=== PATIENT | male | born 1940 | race Caucasian/White ===

== ENCOUNTER 2021-09-26 08:30 | Inpatient (IN) | payer OTHER ==
[~2021-09-26] VITALS: Ht 188 cm; Wt 99.3 kg
[2021-09-26] VITALS (13 sets, daily range): BP systolic 129–164
[2021-09-26 09:14] LABS: BASOPHILS % (AUTO) 0.1 % (0.0-2.0); HEMATOCRIT 38.2 % (36-54); HEMOGLOBIN 12.7 g/dL (14.0-18.0); LYMPHOCYTES # (AUTO) 0.9 K/uL (1.0-5.5); LYMPHOCYTES % (AUTO) 4.4 % (20.5-51.5); MEAN CORPUSCULAR HEMOGLOBIN 30 pg (27-31); MEAN CORPUSCULAR HGB CONC 33 % (32-36); MEAN CORPUSCULAR VOLUME 89 fL (79.0-98.0); MONOCYTES # (AUTO) 1.4 K/uL (0.0-1.0); MONOCYTES % (AUTO) 7.3 % (1.7-9.3); NEUTROPHILS % (AUTO) 88.2 % (40.0-70.0); PLATELET COUNT (AUTO) 290 K/uL (130-430); RED CELL DISTRIBUTION WIDTH 15.2 % (9.0-15.0); WHITE BLOOD COUNT (AUTO) 19.2 K/uL (4.8-10.8)
[2021-09-26] MEDS ORDERED: SODIUM BICARBONATE 8.4% JECT 50 MEQ/50 ML SYRINGE IVP ONE (09:15)
[2021-09-26 09:17] LABS: ANION GAP 9 (5-15); CALCIUM 8.4 mg/dL (8.4-11.0); CHLORIDE 103 mmol/L (98-107); CREATININE 1.99 mg/dL (0.55-1.30); GLUCOSE 210 mg/dL (70-99); SODIUM SERUM 141 mmol/L (136-145); UREA NITROGEN, BLOOD 40 mg/dL (8-21)
[2021-09-26 09:21] LABS: PROTHROMBIN TIME 10.8 SECS (9.5-12.5)
[2021-09-26 09:26] LABS: ALANINE AMINOTRANSFERASE 14 U/L (12-78); ALBUMIN 2.8 g/dL (3.4-4.8); ASPARTATE AMINOTRANSFERASE 18 U/L (10-37); TOTAL BILIRUBIN 0.8 mg/dL (0.0-1.0)
[2021-09-26 09:28] LABS: POTASSIUM 2.8 mmol/L (3.5-5.1)
[2021-09-26] MEDS ORDERED: PIPERACILLIN/TAZO 3.375 GM in NS 50 ML IV ONE (10:15)
[2021-09-26] MEDS ORDERED: NACL 0.9% 2,000 ML IV ONE (10:30)
[2021-09-26] MEDS ORDERED: AZITHROMYCIN 500 MG in NS 250 ML IV ONE (10:30)
[2021-09-26] MEDS ORDERED: KCL 20 mEq in 100 mL (PREMIX) 100 ML IV ONE (10:45)
[2021-09-26 10:53] LABS: BILIRUBIN,URINE NEGATIVE (NEGATIVE); BLOOD, URINE 2+ (NEGATIVE); CLARITY/URINE CLEAR (CLEAR); COLOR,URINE YELLOW (YELLOW); GLUCOSE,URINE NEGATIVE (NEGATIVE); KETONES,URINE NEGATIVE (NEGATIVE); LEUKOCYTE ESTERASE ,URINE NEGATIVE (NEGATIVE); NITRITE, URINE NEGATIVE (NEGATIVE); PROTEIN URINE 1+ (NEGATIVE)
[2021-09-26] MEDS ORDERED: PIPERACILLIN/TAZOBACTAM 3.375 GM/VIAL (ZOSYN) IV ONE (10:53)
[2021-09-26 11:00] LABS: BACTERIA,URINE FEW /HPF (None Seen); WBC,URINE 0-3 /HPF (0-3)
[2021-09-26 11:01] LABS: FINE GRANULAR CASTS,URINE 0-10 /LPF (None Seen); MUCUS,URINE None Seen /LPF (None Seen)
[2021-09-26] MEDS ORDERED: AZITHROMYCIN 500 MG/VIAL (ZITHROMAX) IV ONE (12:13)
[2021-09-26] MEDS ORDERED: *LOVENOX 1MG/KG Q12H/PHARMACY XX ONE (13:00)
[2021-09-26] MEDS ORDERED: NALOXONE HCL 0.4 MG/ML AMP (NARCAN) IVP PRN (13:15)
[2021-09-26] MEDS ORDERED: ONDANSETRON HCL 4 MG/2 ML VIAL IVP PRN (13:15)
[2021-09-26] MEDS ORDERED: cefTRIAXone 1 GM IVPB PREMIX 50 ML IV SCH (14:00)
[2021-09-26] MEDS: AZITHROMYCIN 500 MG in NS 250 ML IV SCH (15:00)
[2021-09-26] MEDS: IPRATROPIUM BROM 0.5 MG/2.5 ML VIAL.NEB (ATROVENT) INH SCH ×3 (15:05→23:23)
[2021-09-26] MEDS: ALBUTEROL SULFATE 0.083% 2.5 MG/3 ML VIAL.NEB INH SCH ×3 (15:21→23:22)
[2021-09-26 16:55] LABS: ANION GAP 8 (5-15); CALCIUM 8.2 mg/dL (8.4-11.0); CHLORIDE 106 mmol/L (98-107); CREATININE 1.72 mg/dL (0.55-1.30); GLUCOSE 140 mg/dL (70-99); POTASSIUM 3.1 mmol/L (3.5-5.1); SODIUM SERUM 148 mmol/L (136-145); UREA NITROGEN, BLOOD 37 mg/dL (8-21)
[2021-09-26] MEDS: PIPERACILLIN/TAZO 2.25G/DEX-IS 50 ML IV SCH (23:07)
[2021-09-27] VITALS (17 sets, daily range): BP systolic 107–159
[2021-09-27] MEDS: D5/0.45 NS 1,000 ML IV SCH ×4 (00:35→20:00)
[2021-09-27] MEDS: LORazepam 2 MG/ML VIAL IVP PRN (01:59)
[2021-09-27] MEDS: IPRATROPIUM BROM 0.5 MG/2.5 ML VIAL.NEB (ATROVENT) INH SCH ×6 (02:26→22:20)
[2021-09-27] MEDS: ALBUTEROL SULFATE 0.083% 2.5 MG/3 ML VIAL.NEB INH SCH ×6 (02:26→22:20)
[2021-09-27] MEDS: PIPERACILLIN/TAZO 2.25G/DEX-IS 50 ML IV SCH ×3 (06:19→23:26)
[2021-09-27 07:11] LABS: BASOPHILS % (AUTO) 0.1 % (0.0-2.0); HEMATOCRIT 34.8 % (36-54); HEMOGLOBIN 11.5 g/dL (14.0-18.0); MEAN CORPUSCULAR HEMOGLOBIN 29 pg (27-31); MEAN CORPUSCULAR HGB CONC 33 % (32-36); MEAN CORPUSCULAR VOLUME 89 fL (79.0-98.0); MONOCYTES # (AUTO) 1.4 K/uL (0.0-1.0); MONOCYTES % (AUTO) 7.2 % (1.7-9.3); NEUTROPHILS # (AUTO) 17.3 K/uL (1.8-7.7); NEUTROPHILS % (AUTO) 87.7 % (40.0-70.0); PLATELET COUNT (AUTO) 262 K/uL (130-430); RED BLOOD CELL COUNT(AUTO) 3.91 MIL/uL (4.2-6.2); RED CELL DISTRIBUTION WIDTH 14.9 % (9.0-15.0); WHITE BLOOD COUNT (AUTO) 19.8 K/uL (4.8-10.8)
[2021-09-27 07:28] LABS: ANION GAP 7 (5-15); CALCIUM 8.3 mg/dL (8.4-11.0); CHLORIDE 109 mmol/L (98-107); CREATININE 1.58 mg/dL (0.55-1.30); GLUCOSE 152 mg/dL (70-99); PHOSPHORUS 4.3 mg/dL (2.7-4.5); SODIUM SERUM 150 mmol/L (136-145); UREA NITROGEN, BLOOD 34 mg/dL (8-21)
[2021-09-27 08:41] LABS: POTASSIUM 2.7 mmol/L (3.5-5.1)
[2021-09-27 09:07] LABS: C-REACTIVE PROTEIN QUANT 17.8 mg/dL (0-0.5)
[2021-09-27] MEDS ORDERED: KCL 20 mEq in 100 mL (PREMIX) 200 ML IV ONE (09:45)
[2021-09-27 10:14] LABS: ERYTHROCYTE SEDIMENTATION RATE 72 MM/HR (0-15)
[2021-09-27] MEDS ORDERED: HYDROCHLOROTHIAZIDE 12.5 MG CAPSULE (HCTZ) PO ONE (14:15)
[2021-09-27] MEDS: AZITHROMYCIN 500 MG in NS 250 ML IV SCH (15:00)
[2021-09-27] MEDS ORDERED: HEPARIN SODIUM,PORCINE 5,000 UNITS/ML VIAL SUBCUT ONE ×2 (16:15→19:00)
[2021-09-28] VITALS (21 sets, daily range): BP systolic 105–172
[2021-09-28] MEDS: LORazepam 2 MG/ML VIAL IVP PRN (00:16)
[2021-09-28] MEDS: MORPHINE 2 MG/ML INJ. SYRINGE IVP PRN (01:52)
[2021-09-28] MEDS: IPRATROPIUM BROM 0.5 MG/2.5 ML VIAL.NEB (ATROVENT) INH SCH ×6 (03:36→23:15)
[2021-09-28] MEDS: ALBUTEROL SULFATE 0.083% 2.5 MG/3 ML VIAL.NEB INH SCH ×6 (03:37→23:15)
[2021-09-28] MEDS: PIPERACILLIN/TAZO 2.25G/DEX-IS 50 ML IV SCH ×3 (06:08→21:17)
[2021-09-28 06:42] LABS: BASOPHILS # (AUTO) 0.1 K/uL (0.0-0.2); BASOPHILS % (AUTO) 0.2 % (0.0-2.0); HEMATOCRIT 35.8 % (36-54); HEMOGLOBIN 11.8 g/dL (14.0-18.0); LYMPHOCYTES # (AUTO) 0.8 K/uL (1.0-5.5); LYMPHOCYTES % (AUTO) 3.2 % (20.5-51.5); MEAN CORPUSCULAR HEMOGLOBIN 29 pg (27-31); MEAN CORPUSCULAR HGB CONC 33 % (32-36); MEAN CORPUSCULAR VOLUME 90 fL (79.0-98.0); MONOCYTES # (AUTO) 1.6 K/uL (0.0-1.0); MONOCYTES % (AUTO) 6.4 % (1.7-9.3); NEUTROPHILS # (AUTO) 22.4 K/uL (1.8-7.7); NEUTROPHILS % (AUTO) 90.2 % (40.0-70.0); PLATELET COUNT (AUTO) 296 K/uL (130-430); RED CELL DISTRIBUTION WIDTH 15.2 % (9.0-15.0); WHITE BLOOD COUNT (AUTO) 24.8 K/uL (4.8-10.8)
[2021-09-28 07:15] LABS: ALANINE AMINOTRANSFERASE 11 U/L (12-78); ALBUMIN 2.1 g/dL (3.4-4.8); ASPARTATE AMINOTRANSFERASE 15 U/L (10-37); CALCIUM 8.3 mg/dL (8.4-11.0); CREATININE 1.28 mg/dL (0.55-1.30); GLUCOSE 95 mg/dL (70-99); PHOSPHORUS 1.8 mg/dL (2.7-4.5); TOTAL BILIRUBIN 0.5 mg/dL (0.0-1.0); UREA NITROGEN, BLOOD 22 mg/dL (8-21)
[2021-09-28 07:27] LABS: ANION GAP 8 (5-15); CHLORIDE 109 mmol/L (98-107); SODIUM SERUM 151 mmol/L (136-145)
[2021-09-28 07:42] LABS: POTASSIUM 2.8 mmol/L (3.5-5.1)
[2021-09-28 08:17] LABS: C-REACTIVE PROTEIN QUANT 21.7 mg/dL (0-0.5)
[2021-09-28] MEDS ORDERED: K PHOS 30 MM in NS 250 ML IV ONE (08:45)
[2021-09-28] MEDS: D5/0.45 NS 1,000 ML IV SCH ×2 (09:03→15:15)
[2021-09-28] MEDS: HYDROCHLOROTHIAZIDE 12.5 MG CAPSULE (HCTZ) PO SCH (09:04)
[2021-09-28] MEDS: HEPARIN SODIUM,PORCINE 5,000 UNITS/ML VIAL SUBCUT SCH ×2 (09:07→21:16)
[2021-09-28 09:19] LABS: ERYTHROCYTE SEDIMENTATION RATE 71 MM/HR (0-15)
[2021-09-28] MEDS: MORPHINE 4 MG INJ. 4 MG/ML VIAL IVP PRN ×2 (12:10→21:20)
[2021-09-28] MEDS: AZITHROMYCIN 500 MG in NS 250 ML IV SCH (16:04)
[2021-09-28] MEDS: VANCOMYCIN HCL 1,500 MG in NS 250 ML IV SCH (17:08)
[2021-09-29] VITALS (22 sets, daily range): BP systolic 92–162
[2021-09-29] MEDS: IPRATROPIUM BROM 0.5 MG/2.5 ML VIAL.NEB (ATROVENT) INH SCH ×6 (03:45→23:11)
[2021-09-29] MEDS: ALBUTEROL SULFATE 0.083% 2.5 MG/3 ML VIAL.NEB INH SCH ×6 (03:45→23:11)
[2021-09-29 06:28] LABS: ANION GAP 7 (5-15); CHLORIDE 111 mmol/L (98-107); CREATININE 1.26 mg/dL (0.55-1.30); GLUCOSE 141 mg/dL (70-99); SODIUM SERUM 150 mmol/L (136-145); UREA NITROGEN, BLOOD 18 mg/dL (8-21)
[2021-09-29] MEDS: PIPERACILLIN/TAZO 2.25G/DEX-IS 50 ML IV SCH ×3 (06:39→21:20)
[2021-09-29] MEDS: D5/0.45 NS 1,000 ML IV SCH ×3 (06:39→21:19)
[2021-09-29] MEDS: MORPHINE 4 MG INJ. 4 MG/ML VIAL IVP PRN ×2 (06:42→14:25)
[2021-09-29 07:52] LABS: HEMATOCRIT 37.1 % (36-54); MEAN CORPUSCULAR HEMOGLOBIN 29 pg (27-31); MEAN CORPUSCULAR HGB CONC 32 % (32-36); MEAN CORPUSCULAR VOLUME 90 fL (79.0-98.0); PLATELET COUNT (AUTO) 324 K/uL (130-430); RED BLOOD CELL COUNT(AUTO) 4.14 MIL/uL (4.2-6.2); RED CELL DISTRIBUTION WIDTH 15.7 % (9.0-15.0)
[2021-09-29] MEDS: HYDROCHLOROTHIAZIDE 12.5 MG CAPSULE (HCTZ) PO SCH (09:00)
[2021-09-29] MEDS: HEPARIN SODIUM,PORCINE 5,000 UNITS/ML VIAL SUBCUT SCH ×2 (09:10→21:21)
[2021-09-29] MEDS: KCL 20 mEq in 100 mL (PREMIX) 100 ML IV SCH ×2 (09:15→11:35)
[2021-09-29 09:18] LABS: WHITE BLOOD COUNT (AUTO) 34.5 K/uL (4.8-10.8)
[2021-09-29] MEDS: LORazepam 2 MG/ML VIAL IVP PRN ×3 (11:37→20:56)
[2021-09-29] MEDS: AZITHROMYCIN 500 MG in NS 250 ML IV SCH (14:23)
[2021-09-29 15:14] LABS: BAND % (MANUAL) 12 % (0-6); EOSINOPHILS % (MANUAL) 0 % (0-7); LYMPHOCYTES % (MANUAL) 2 % (20-46); MONOCYTES % (MANUAL) 3 % (0-11)
[2021-09-29 15:15] LABS: BASOPHILS % (MANUAL) 0 % (0-2)
[2021-09-29] MEDS: VANCOMYCIN HCL 1,500 MG in NS 250 ML IV SCH (18:07)
[2021-09-30] VITALS (22 sets, daily range): BP systolic 95–174
[2021-09-30] MEDS: IPRATROPIUM BROM 0.5 MG/2.5 ML VIAL.NEB (ATROVENT) INH SCH ×6 (04:14→23:00)
[2021-09-30] MEDS: ALBUTEROL SULFATE 0.083% 2.5 MG/3 ML VIAL.NEB INH SCH ×6 (04:14→23:00)
[2021-09-30] MEDS: LORazepam 2 MG/ML VIAL IVP PRN ×3 (04:35→22:37)
[2021-09-30] MEDS: PIPERACILLIN/TAZO 2.25G/DEX-IS 50 ML IV SCH ×3 (06:42→22:15)
[2021-09-30 07:06] LABS: ANION GAP 4 (5-15); CALCIUM 8.2 mg/dL (8.4-11.0); CHLORIDE 114 mmol/L (98-107); GLUCOSE 143 mg/dL (70-99); POTASSIUM 3.7 mmol/L (3.5-5.1); SODIUM SERUM 152 mmol/L (136-145); UREA NITROGEN, BLOOD 17 mg/dL (8-21)
[2021-09-30 07:07] LABS: BASOPHILS % (AUTO) 0.1 % (0.0-2.0); EOSINOPHILS # (AUTO) 0.1 K/uL (0.0-0.4); EOSINOPHILS % (AUTO) 0.3 % (0.0-4.0); HEMATOCRIT 34.5 % (36-54); HEMOGLOBIN 11.3 g/dL (14.0-18.0); LYMPHOCYTES # (AUTO) 0.8 K/uL (1.0-5.5); LYMPHOCYTES % (AUTO) 2.4 % (20.5-51.5); MEAN CORPUSCULAR HEMOGLOBIN 29 pg (27-31); MEAN CORPUSCULAR HGB CONC 33 % (32-36); MEAN CORPUSCULAR VOLUME 90 fL (79.0-98.0); MONOCYTES # (AUTO) 1.5 K/uL (0.0-1.0); MONOCYTES % (AUTO) 4.5 % (1.7-9.3); NEUTROPHILS % (AUTO) 92.7 % (40.0-70.0); PLATELET COUNT (AUTO) 318 K/uL (130-430); RED BLOOD CELL COUNT(AUTO) 3.85 MIL/uL (4.2-6.2); RED CELL DISTRIBUTION WIDTH 15.6 % (9.0-15.0)
[2021-09-30] MEDS: HYDROCHLOROTHIAZIDE 12.5 MG CAPSULE (HCTZ) PO SCH (07:52)
[2021-09-30] MEDS: D5/0.45 NS 1,000 ML IV SCH ×3 (07:52→23:17)
[2021-09-30] MEDS: MORPHINE 4 MG INJ. 4 MG/ML VIAL IVP PRN (07:54)
[2021-09-30] MEDS: HEPARIN SODIUM,PORCINE 5,000 UNITS/ML VIAL SUBCUT SCH ×2 (08:29→22:36)
[2021-09-30 08:33] LABS: WHITE BLOOD COUNT (AUTO) 32.4 K/uL (4.8-10.8)
[2021-09-30] MEDS: AZITHROMYCIN 500 MG in NS 250 ML IV SCH (15:02)
[2021-09-30] MEDS: VANCOMYCIN HCL 1,500 MG in NS 250 ML IV SCH (17:25)
[2021-10-01] VITALS (25 sets, daily range): BP systolic 80–158
[2021-10-01] MEDS: MORPHINE 2 MG/ML INJ. SYRINGE IVP PRN (02:37)
[2021-10-01] MEDS: IPRATROPIUM BROM 0.5 MG/2.5 ML VIAL.NEB (ATROVENT) INH SCH ×6 (03:15→23:15)
[2021-10-01] MEDS: ALBUTEROL SULFATE 0.083% 2.5 MG/3 ML VIAL.NEB INH SCH ×6 (03:15→23:15)
[2021-10-01] MEDS: PIPERACILLIN/TAZO 2.25G/DEX-IS 50 ML IV SCH ×3 (06:02→21:48)
[2021-10-01 06:59] LABS: ANION GAP 4 (5-15); CALCIUM 8.1 mg/dL (8.4-11.0); CHLORIDE 113 mmol/L (98-107); CREATININE 1.39 mg/dL (0.55-1.30); GLUCOSE 131 mg/dL (70-99); POTASSIUM 3.3 mmol/L (3.5-5.1); SODIUM SERUM 150 mmol/L (136-145); UREA NITROGEN, BLOOD 19 mg/dL (8-21)
[2021-10-01 07:02] LABS: BASOPHILS # (AUTO) 0.1 K/uL (0.0-0.2); BASOPHILS % (AUTO) 0.3 % (0.0-2.0); EOSINOPHILS # (AUTO) 0.1 K/uL (0.0-0.4); EOSINOPHILS % (AUTO) 0.5 % (0.0-4.0); HEMATOCRIT 35.4 % (36-54); HEMOGLOBIN 11.7 g/dL (14.0-18.0); LYMPHOCYTES # (AUTO) 0.8 K/uL (1.0-5.5); LYMPHOCYTES % (AUTO) 3.2 % (20.5-51.5); MEAN CORPUSCULAR HEMOGLOBIN 29 pg (27-31); MEAN CORPUSCULAR HGB CONC 33 % (32-36); MEAN CORPUSCULAR VOLUME 89 fL (79.0-98.0); MONOCYTES # (AUTO) 1.2 K/uL (0.0-1.0); MONOCYTES % (AUTO) 4.9 % (1.7-9.3); NEUTROPHILS # (AUTO) 22.7 K/uL (1.8-7.7); PLATELET COUNT (AUTO) 295 K/uL (130-430); RED BLOOD CELL COUNT(AUTO) 3.97 MIL/uL (4.2-6.2); RED CELL DISTRIBUTION WIDTH 15.6 % (9.0-15.0); WHITE BLOOD COUNT (AUTO) 24.9 K/uL (4.8-10.8)
[2021-10-01] MEDS: HYDROCHLOROTHIAZIDE 12.5 MG CAPSULE (HCTZ) PO SCH (09:00)
[2021-10-01] MEDS ORDERED: hydrALAZINE HCL 20 MG/ML VIAL IVP PRN (09:00)
[2021-10-01 09:02] LABS: NEUTROPHILS % (AUTO) 91.1 % (40.0-70.0)
[2021-10-01] MEDS: HEPARIN SODIUM,PORCINE 5,000 UNITS/ML VIAL SUBCUT SCH ×2 (09:02→20:44)
[2021-10-01] MEDS: POTASSIUM CHLORIDE 40 MEQ, LIDOCAINE JECT 2% PF 100 MG 50 MG in NS 250 ML IV PRN (09:55)
[2021-10-01] MEDS ORDERED: *TPN PER PHARMACY XX PRN (15:00)
[2021-10-01] MEDS: VANCOMYCIN HCL 1,500 MG in NS 250 ML IV SCH (17:17)
[2021-10-01 17:33] LABS: PROTHROMBIN TIME 10.9 SECS (9.5-12.5)
[2021-10-01] MEDS: D5W 1,000 ML IV SCH ×2 (19:15→23:05)
[2021-10-01] MEDS: LORazepam 2 MG/ML VIAL IVP PRN (22:18)
[2021-10-02] VITALS (23 sets, daily range): BP systolic 85–178
[2021-10-02] MEDS: ALBUTEROL SULFATE 0.083% 2.5 MG/3 ML VIAL.NEB INH SCH ×6 (02:32→22:20)
[2021-10-02] MEDS: IPRATROPIUM BROM 0.5 MG/2.5 ML VIAL.NEB (ATROVENT) INH SCH ×6 (02:32→22:21)
[2021-10-02] MEDS: MORPHINE 2 MG/ML INJ. SYRINGE IVP PRN (04:31)
[2021-10-02] MEDS: PIPERACILLIN/TAZO 2.25G/DEX-IS 50 ML IV SCH ×3 (05:54→21:51)
[2021-10-02 06:35] LABS: ALANINE AMINOTRANSFERASE 9 U/L (12-78); ALBUMIN 1.4 g/dL (3.4-4.8); ANION GAP 5 (5-15); ASPARTATE AMINOTRANSFERASE 20 U/L (10-37); BILIRUBIN,DIRECT 0.5 mg/dL (0.0-0.3); CALCIUM 8.2 mg/dL (8.4-11.0); CHLORIDE 112 mmol/L (98-107); CREATININE 1.42 mg/dL (0.55-1.30); GLUCOSE 134 mg/dL (70-99); PHOSPHORUS 1.7 mg/dL (2.7-4.5); POTASSIUM 3.1 mmol/L (3.5-5.1); SODIUM SERUM 150 mmol/L (136-145); TOTAL BILIRUBIN 0.7 mg/dL (0.0-1.0); UREA NITROGEN, BLOOD 19 mg/dL (8-21)
[2021-10-02 08:05] LABS: BASOPHILS % (AUTO) 0.2 % (0.0-2.0); EOSINOPHILS # (AUTO) 0.1 K/uL (0.0-0.4); EOSINOPHILS % (AUTO) 0.3 % (0.0-4.0); HEMOGLOBIN 11.9 g/dL (14.0-18.0); LYMPHOCYTES # (AUTO) 1.2 K/uL (1.0-5.5); LYMPHOCYTES % (AUTO) 6.1 % (20.5-51.5); MEAN CORPUSCULAR HEMOGLOBIN 29 pg (27-31); MEAN CORPUSCULAR HGB CONC 33 % (32-36); MEAN CORPUSCULAR VOLUME 88 fL (79.0-98.0); MONOCYTES # (AUTO) 1.4 K/uL (0.0-1.0); MONOCYTES % (AUTO) 7.6 % (1.7-9.3); NEUTROPHILS # (AUTO) 16.3 K/uL (1.8-7.7); PLATELET COUNT (AUTO) 301 K/uL (130-430); RED BLOOD CELL COUNT(AUTO) 4.08 MIL/uL (4.2-6.2); RED CELL DISTRIBUTION WIDTH 15.9 % (9.0-15.0)
[2021-10-02 08:44] LABS: NEUTROPHILS % (AUTO) 85.8 % (40.0-70.0)
[2021-10-02] MEDS: HYDROCHLOROTHIAZIDE 12.5 MG CAPSULE (HCTZ) PO SCH (09:00)
[2021-10-02] MEDS: HEPARIN SODIUM,PORCINE 5,000 UNITS/ML VIAL SUBCUT SCH ×2 (09:11→21:53)
[2021-10-02] MEDS: POTASSIUM CHLORIDE 40 MEQ, LIDOCAINE JECT 2% PF 100 MG 50 MG in NS 250 ML IV PRN (10:39)
[2021-10-02 10:42] LABS: TRIGLYCERIDES 90 mg/dL (30-150)
[2021-10-02] MEDS ORDERED: hydrALAZINE HCL 20 MG/ML VIAL IVP PRN (11:00)
[2021-10-02] MEDS: D5W 1,000 ML IV SCH (12:25)
[2021-10-02] MEDS: VANCOMYCIN HCL 1,500 MG in NS 250 ML IV SCH (17:49)
[2021-10-02] MEDS ORDERED: MVI IV SCH ×7 (21:00)
[2021-10-02] MEDS ORDERED: MAGNESIUM SULFATE IV SCH ×7 (21:00)
[2021-10-02] MEDS ORDERED: K PHOS IV SCH ×7 (21:00)
[2021-10-02] MEDS ORDERED: TPN CENTRAL IV SCH ×7 (21:00)
[2021-10-02] MEDS ORDERED: [UNRECOGNIZED DRUG - OTHER] IV SCH ×7 (21:00)
[2021-10-03] VITALS (21 sets, daily range): BP systolic 0–163
[2021-10-03] MEDS: ALBUTEROL SULFATE 0.083% 2.5 MG/3 ML VIAL.NEB INH SCH ×2 (03:07→07:15)
[2021-10-03] MEDS: IPRATROPIUM BROM 0.5 MG/2.5 ML VIAL.NEB (ATROVENT) INH SCH ×2 (03:07→07:15)
[2021-10-03] MEDS: PIPERACILLIN/TAZO 2.25G/DEX-IS 50 ML IV SCH (07:03)
[2021-10-03 07:48] LABS: BASOPHILS % (AUTO) 0.1 % (0.0-2.0); EOSINOPHILS # (AUTO) 0.1 K/uL (0.0-0.4); EOSINOPHILS % (AUTO) 0.3 % (0.0-4.0); HEMATOCRIT 36.6 % (36-54); HEMOGLOBIN 11.9 g/dL (14.0-18.0); LYMPHOCYTES # (AUTO) 1.2 K/uL (1.0-5.5); LYMPHOCYTES % (AUTO) 6.7 % (20.5-51.5); MEAN CORPUSCULAR HEMOGLOBIN 29 pg (27-31); MEAN CORPUSCULAR HGB CONC 33 % (32-36); MEAN CORPUSCULAR VOLUME 89 fL (79.0-98.0); MONOCYTES # (AUTO) 1.6 K/uL (0.0-1.0); NEUTROPHILS # (AUTO) 15.2 K/uL (1.8-7.7); NEUTROPHILS % (AUTO) 83.9 % (40.0-70.0); PLATELET COUNT (AUTO) 264 K/uL (130-430); RED BLOOD CELL COUNT(AUTO) 4.13 MIL/uL (4.2-6.2); RED CELL DISTRIBUTION WIDTH 15.8 % (9.0-15.0); WHITE BLOOD COUNT (AUTO) 18.1 K/uL (4.8-10.8)
[2021-10-03 08:02] LABS: ALANINE AMINOTRANSFERASE 9 U/L (12-78); ALBUMIN 1.4 g/dL (3.4-4.8); ANION GAP 5 (5-15); ASPARTATE AMINOTRANSFERASE 16 U/L (10-37); BILIRUBIN,DIRECT 0.5 mg/dL (0.0-0.3); CALCIUM 7.6 mg/dL (8.4-11.0); CHLORIDE 108 mmol/L (98-107); CREATININE 1.36 mg/dL (0.55-1.30); GLUCOSE 181 mg/dL (70-99); POTASSIUM 3.2 mmol/L (3.5-5.1); SODIUM SERUM 145 mmol/L (136-145); TOTAL BILIRUBIN 0.7 mg/dL (0.0-1.0); UREA NITROGEN, BLOOD 21 mg/dL (8-21)
[2021-10-03] MEDS: HYDROCHLOROTHIAZIDE 12.5 MG CAPSULE (HCTZ) PO SCH ×2 (08:59→09:00)
[2021-10-03] MEDS: HEPARIN SODIUM,PORCINE 5,000 UNITS/ML VIAL SUBCUT SCH (09:00)
[2021-10-03] MEDS ORDERED: NALOXONE HCL 0.4 MG/ML AMP (NARCAN) IVP PRN (11:30)
[2021-10-03] MEDS ORDERED: MORPHINE SULFATE IN 0.9 % NACL 100 ML IV PRN (13:00)
[2021-10-03] MEDS ORDERED: MVI IV SCH ×7 (21:00)
[2021-10-03] MEDS ORDERED: [UNRECOGNIZED DRUG - OTHER] IV SCH ×7 (21:00)
[2021-10-03] MEDS ORDERED: TPN CENTRAL IV SCH ×7 (21:00)
[2021-10-03] MEDS ORDERED: K PHOS IV SCH ×7 (21:00)
[2021-10-03] MEDS ORDERED: MAGNESIUM SULFATE IV SCH ×7 (21:00)
== END 2021-10-03 20:08 | DRG 871 ==
LOC: SED 08:30 → UNDOADMIN 10:58 → STU 10:58 → SIC 11:13 → STU 10-03 16:09 → SIC 10-03 17:08
PROVIDERS: ADMIT Preventive Medicine Preventive Medicine/Occupational Environmental Medicine; ATTEND General Practice
PROC: 5A09557 Assistance with Respiratory Ventilation, Greater than 96 Consecutive Hours, Continuous Positive Airway Pressure (ICD-10-PCS; principal; 2021-09-26)
DX: A41.9 Sepsis, unspecified organism (principal); I46.9 Cardiac arrest, cause unspecified; J69.0 Pneumonitis due to inhalation of food and vomit; J96.01 Acute respiratory failure with hypoxia; J96.02 Acute respiratory failure with hypercapnia; N17.0 Acute kidney failure with tubular necrosis; J44.1 Chronic obstructive pulmonary disease with (acute) exacerbation; E87.2 Acidosis; E87.0 Hyperosmolality and hypernatremia; I13.0 Hypertensive heart and chronic kidney disease with heart failure and stage 1 through stage 4 chronic kidney disease, or unspecified chronic kidney disease; N39.0 Urinary tract infection, site not specified; R65.20 Severe sepsis without septic shock; E83.42 Hypomagnesemia; E83.51 Hypocalcemia; D64.9 Anemia, unspecified; E87.6 Hypokalemia; E88.09 Other disorders of plasma-protein metabolism, not elsewhere classified; I25.10 Atherosclerotic heart disease of native coronary artery without angina pectoris; N18.9 Chronic kidney disease, unspecified; Z20.822 Contact with and (suspected) exposure to COVID-19; R73.9 Hyperglycemia, unspecified; Z86.73 Personal history of transient ischemic attack (TIA), and cerebral infarction without residual deficits; Z95.5 Presence of coronary angioplasty implant and graft; Z66 Do not resuscitate; Z51.5 Encounter for palliative care
CPT/HCPCS: 36415; 36600; 70450-TC; 71045; 74018; 78579; 78580-TC; 80048; 80053; 80076; 80202; 81000; 82803-TC; 83605; 83735; 83880; 84100; 84478; 84484; 85007; 85025; 85027; 85379; 85610-TC; 85651-TC; 85730-TC; 86140; 87040; 87081; 87086; 93005; 93970; 94640; 94660; 94760; 96365; 96367; 96368; 96375; 99285; A9539; A9540; J0360; J0456; J0696; J1644; J2060; J2270; J2543; J3370; J3475; J3480; J7050; J7613